=== PATIENT | male | born 1990 | race Caucasian/White ===

== ENCOUNTER 2021-11-14 09:14 | Emergency (ER) | payer SELFPAY ==
[~2021-11-14] VITALS: Ht 182.9 cm; Wt 118.2 kg
--- NOTE | 2021-11-14 09:30 | PHYS DOC ---
Past History Past Medical History: No Pertinent History Smoking: Cigarettes Alcohol Use: Heavy Drug Use: None General Adult EDM: Chief Complaint: DENTAL PROBLEM HPI: HPI: Patient is a 31-year-old male with greater than 1 month history of left upper dental pain. He reports that he is here today because "my roommates are tired of me bitching about it." He has not seen a dentist. He has previously seen the [facility] dental [facility], many years ago for dental extraction. He denies facial swelling, sore throat, difficulty swallowing, difficulty breathing. He has not taken anything at all for the pain. No acute changes in pain symptoms today. He denies any acute facial or dental trauma. No other complaints. Review of Systems: Review of Systems: Constitutional: Denies fever or chills HENT: Denies nasal congestion or sore throat. Denies voice changes, odynophagia, denies facial or throat swelling. Left upper dental pain. Dental caries. Respiratory: Denies cough or shortness of breath, denies stridor or voice changes Cardiovascular: Denies chest pain GI: Denies abdominal pain, nausea, vomiting Musculoskeletal: Denies back pain or joint pain Integument: Denies rash Neurologic: Denies headache, focal weakness or sensory changes Psychiatric: Denies depression or anxiety Physical Exam: PE: Constitutional: Well developed, well nourished, no acute distress, non-toxic appearance. [] HENT: Normocephalic, atraumatic, oropharynx is patent and clear, no facial or oral edema or swelling. No drooling or trismus. Speaks in full and clear sentences. He has multiple severe dental caries on the bilateral left and right upper premolars and molars. No focal fluctuance, no focal percussion tenderness. Mild to moderate gingivitis noted. No purulent drainage is noted. External ears are normal bilaterally. No otorrhea. Mucous membranes are moist. Speaks in full and clear sentences, voice is not muffled, no stridor. He is controlling secretions well. Eyes: Sclera are clear and anicteric. Neck: Normal range of motion, no tenderness, supple, no stridor. No pathologic adenopathy. Trachea is midline. Cardiovascular: Well-perfused appearing, no cyanosis or edema Lungs & Thorax: Respirations are nonlabored. No audible wheezing. No stridor. Skin: Warm, dry, no erythema, no rash. [] Extremities: No limb deformity, no peripheral edema noted Neurologic: He is awake, alert, oriented x3, no facial asymmetry, gross motor function normal, ambulatory with steady gait, speech is clear and fluent Psychologic: Affect normal, judgement normal, mood normal. [] EKG: EKG: [] Radiology/Procedures: Radiology/Procedures: [] Heart Score: C/O Chest Pain: No Risk Factors: Risk Factors: DM, Current or recent (<one month) smoker, HTN, HLP, family history of CAD, obesity. Risk Scores: Score 0 - 3: 2.5% MACE over next 6 weeks - Discharge Home Score 4 - 6: 20.3% MACE over next 6 weeks - Admit for Clinical Observation Score 7 - 10: 72.7% MACE over next 6 weeks - Early Invasive Strategies Course & Med Decision Making: Course & Med Decision Making The patient drive, so no sedating medications could be given. I did prescribe him pain medication and antibiotics for discharge. I sent these to his preferred pharmacy here in [facility]. He is given outpatient dental resources. He has previously seen the [facility] dental [facility], I recommend he contact them again for follow-up of this problem. He will likely require formal extractions, by [facility]. No current indication for emergent imaging or invasive exams. Return precautions are given. He verbalizes understanding. Martin Disclaimer: Martin Disclaimer: This electronic medical record was generated, in whole or in part, using a voice recognition dictation system. Departure Departure: Impression: Primary Impression: Pain, dental Additional Impression: Dental caries Disposition: HOME / SELF CARE / HOMELESS Condition: STABLE Referrals: PCP,NO (PCP) Patient Instructions: Dental Caries Additional Instructions: Take the full course of antibiotics. Use the pain medicine as needed/as directed. Avoid smoking, avoid excess alcohol use. Return to the ER immediately for severe facial pain, difficulty breathing, problems controlling secretions or any other concerns. Please contact the [facility] dental [facility] for follow-up. Scripts Chlorhexidine Gluconate (PERIDEX) 15 Ml Mouthwash 15 ML PO BID for dental infection for 7 Days, #480 ML 0 Refills swish and spit, do not swallow Prov: JUDAH DAVIDSON DO 11/14/21 Penicillin V Potassium (PENICILLIN V POTASSIUM) 500 Mg Tablet 1 TAB PO QID for dental infection for 7 Days, #28 TAB Prov: JUDAH DAVIDSON DO 11/14/21 Hydrocodone/Ibuprofen (HYDROCODONE-IBUPROFEN 7.5-200 ) 1 Each Tablet 1 TAB PO PRN Q6HRS PRN for PAIN, #15 TAB 0 Refills Prov: JUDAH DAVIDSON DO 11/14/21 JUDAH DAVIDSON DO Nov 14, 2021 09:30
[2021-11-14 09:31] VITALS: BP 145/87
[2021-11-14] MEDS ORDERED: HYDR-1179 PO (09:38)
[2021-11-14] MEDS ORDERED: PENI500T PO (09:41)
[2021-11-14] MEDS ORDERED: CHLO15MO2 PO (09:41)
== END 2021-11-14 09:50 | disposition home or self-care (01) ==
LOC: ER 09:14
DX: K02.9 Dental caries, unspecified (principal); F17.210 Nicotine dependence, cigarettes, uncomplicated
CPT/HCPCS: 99283

== ENCOUNTER 2021-11-24 15:06 | Emergency (ER) | payer SELFPAY ==
[~2021-11-24] VITALS: Ht 182.9 cm; Wt 128.8 kg
[~2021-11-24 15:06] MED LIST: CHLO15MO2 PO; HYDR-1179 PO; PENI500T PO
--- NOTE | 2021-11-24 15:25 | PHYS DOC ---
Past History Past Medical History: No Pertinent History (ELVA SAM APRN) Past Surgical History: No Surgical History (ELVA SAM APRN) Smoking: Cigarettes Alcohol Use: Heavy Drug Use: None (ELVA SAM APRN) General Adult EDM: Chief Complaint: BACK PAIN OR INJURY HPI: HPI: Patient is a 31-year-old male who presents to the emergency department for right-sided thoracic pain that started 1 week ago. Patient rates his pain 3 out of 10. He reports that the pain is worse with movement. 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 Patient reports taking Tylenol 650 mg twice a day for the last 4 days. 2 days ago he ran out of hydrocodone that he had at home from dental pain. Patient denies loss of bowel or bladder and he denies any current saddle anesthesias, nausea, vomiting. (ELVA SAM APRN) Review of Systems: Review of Systems: GI: See HPI : See HPI Musculoskeletal: See HPI Neurologic: See HPI (ELVA SAM APRN) Current Medications: Current Meds: Current Medications Medications (Trade) Dose Ordered Sig/Parvez Start Time Stop Time Status Last Admin Dose Admin Ketorolac Tromethamine (Toradol Im) 60 mg 1X ONCE 11/24/21 15:30 11/24/21 15:31 UNV Orphenadrine Citrate (Norflex) 60 mg 1X ONCE 11/24/21 15:30 11/24/21 15:31 UNV (ELVA SAM APRN) Allergies: Allergies: Allergies Coded Allergies Type Severity Reaction Last Updated Verified No Known Drug Allergies 11/24/21 No (ELVA SAM APRN) Physical Exam: PE: Constitutional: Well developed, well nourished, no acute distress, non-toxic appearance. [] HENT: Normocephalic, atraumatic, bilateral external ears normal, oropharynx moist, no oral exudates, nose normal. [] Eyes: PERRL, EOMI, conjunctiva normal, no discharge. [] Neck: Normal range of motion, no tenderness, supple, no stridor. [] Cardiovascular: Normal peripheral perfusion Lungs & Thorax: Normal work of breathing, no tachypnea Abdomen: Soft and obese Skin: Warm, dry, no erythema, no rash. [] Back: No bony spinal tenderness, normal range of motion, right-sided thoracic paraspinal tenderness with palpation Extremities: No tenderness, no cyanosis, no clubbing, ROM intact, no edema. [] Neurologic: Alert and oriented X 3, normal motor function, normal sensory function, no focal deficits noted. [] Psychologic: Affect normal, judgement normal, mood normal. [] (ELVA SAM APRN) EKG: EKG: [] (ELVA SAM APRN) Radiology/Procedures: Radiology/Procedures: []PROCEDURE: CT THORACIC SPINE WO CONTRAST STUDY: CT thoracic spine without contrast INDICATION: Right-sided thoracic pain for 3 days. COMPARISON: None. TECHNIQUE: Axial CT imaging of the thoracic spine performed without the use of contrast. Coronal and sagittal reformats were obtained. One or more of the following individualized dose reduction techniques were utilized for this examination: 1. Automated exposure control 2. Adjustment of the mA and/or kV according to patient size 3. Use of iterative reconstruction technique. FINDINGS: No acute or aggressive osseous process. Normal thoracic kyphosis. Anatomic facet alignment. Maintained disc space height. A few shallow Schmorl's nodes. No osseous stenosis of the central canal or foramina. Unremarkable paraspinous soft tissues. No significant incidental finding throughout the upper abdomen are the partially imaged lungs and mediastinal contents. IMPRESSION: No CT abnormality to help explain the patient's symptoms. Nonemergent MRI could be performed if there are ongoing symptoms referrable to the thoracic spine. Electronically signed by: MABEL GREEN MD (11/24/2021 3:57 PM) [facility] DICTATED AND SIGNED BY: MABEL GREEN MD DATE: 11/24/21 1551 CC: ELVA SAM APRN; PCP,NO ~ (ELVA SAM APRN) Heart Score: C/O Chest Pain: N/A Risk Factors: Risk Factors: DM, Current or recent (<one month) smoker, HTN, HLP, family history of CAD, obesity. Risk Scores: Score 0 - 3: 2.5% MACE over next 6 weeks - Discharge Home Score 4 - 6: 20.3% MACE over next 6 weeks - Admit for Clinical Observation Score 7 - 10: 72.7% MACE over next 6 weeks - Early Invasive Strategies (ELVA SAM APRN) Course & Med Decision Making: Course & Med Decision Making Pertinent Labs and Imaging studies reviewed. (See chart for details) [] Presents to the emergency department for right paraspinal thoracic tenderness with palpation, pain started after he started a new job where he is lifting heavy objects and he is afraid that he strained his back. He has no cauda equina symptoms at this time. CT imaging of his thoracic was performed in the emergency department showed no acute findings. I ordered Toradol and orphenadrine for patient which he refused. Patient advised to take anti- inflammatory medications at home and follow-up with his doctor. May need an MRI if he continues to have pain. I discussed with patient all findings and diagnostic testing as well as the need to follow-up with PCP for further evaluation and treatment or return to the ER if any new or worsening symptoms. Strict return precautions were also discussed at length. Patient voiced understanding and agreement with the plan. Patient is hemodynamically stable at the time of disposition. (ELVA SAM APRN) Dragon Disclaimer: Dragon Disclaimer: This electronic medical record was generated, in whole or in part, using a voice recognition dictation system. (ELVA SAM APRN) Attending Co-Sign The patient was seen and interviewed as well as examined at the bedside. The chart was reviewed. The case was discussed. Agree with the plan of care. (TINA ANN DO) Departure Departure: Impression: Primary Impression: Back pain Qualified Codes: M54.6 - Pain in thoracic spine Disposition: HOME / SELF CARE / HOMELESS Condition: GOOD Referrals: PCP,NO (PCP) Patient Instructions: Back Pain, Adult Additional Instructions: You are seen in the emergency department today for your upper back pain. Imaging was performed that showed no acute findings. Please take anti- inflammatory medications like Tylenol and ibuprofen at home. You are being discharged home with muscle relaxer. This medication may cause sedation so do not take when you need to be alert, driving a vehicle or with alcohol. You can apply heat to the area.. Follow-up with your primary care provider on Saturday regarding your ER visit. If you continue to have pain, you may benefit from MRI which we do not have at this hospital. Return to the emergency department if you develop any new injuries, worsening of your back pain, chest pain, shortness of breath, intractable nausea or vomiting, high fevers refractory to treatment, inability to bear weight or walk, loss of bowel or bladder, loss of sensation in your groin and legs. Scripts Cyclobenzaprine Hcl (CYCLOBENZAPRINE HCL) 5 Mg Tablet 1 TAB PO TID for muscle spasm for 7 Days, #21 TAB 0 Refills Prov: ELVA SAM APRN 11/24/21 ELVA SAM APRN Nov 24, 2021 15:25 TINA ANN DO Nov 25, 2021 06:12
[2021-11-24] MEDS ORDERED: KETOROLAC 60 MG/2 ML VIAL. IM ONE (15:30)
[2021-11-24] MEDS ORDERED: ORPHENADRINE CITRATE 60 MG/2 ML VIAL. IM ONE (15:30)
--- NOTE | 2021-11-24 16:00 | RAD ---
STUDY: CT thoracic spine without contrast INDICATION: Right-sided thoracic pain for 3 days. COMPARISON: None. TECHNIQUE: Axial CT imaging of the thoracic spine performed without the use of contrast. Coronal and sagittal reformats were obtained. One or more of the following individualized dose reduction techniques were utilized for this examinat ion: 1. Automated exposure control 2. Adjustment of the mA and/or kV according to patient size 3. Use of iterative reconstruction technique. FINDINGS: No acute or aggressive osseous process. Normal thoracic kyphosis. Anatomic facet alignment. Maintaine d disc space height. A few shallow Schmorl's nodes. No osseous stenosis of the central canal or sara saravanan. Unremarkable paraspinous soft tissues. No significant incidental finding throughout the upper abdomen are the partially imaged lungs and mediastinal contents. IMPRESSION: No CT abnormality to help explain the patient's symptoms. Nonemergent MRI could be performed if there are ongoing symptoms referrable to the thoracic spine. Electronically signed by: MABEL GREEN MD (11/24/2021 3:57 PM) [facility]
[2021-11-24] MEDS ORDERED: CYCL5TAB PO (16:06)
[2021-11-24 16:14] VITALS: BP 120/79
== END 2021-11-24 16:16 | disposition home or self-care (01) ==
LOC: ER 15:06
DX: M54.6 Pain in thoracic spine (principal); F17.210 Nicotine dependence, cigarettes, uncomplicated; F10.20 Alcohol dependence, uncomplicated; Y90.9 Presence of alcohol in blood, level not specified
CPT/HCPCS: 72128; 99284